=== PATIENT | female | born 1985 | race Caucasian/White ===

== ENCOUNTER 2016-11-16 10:49 | Emergency (ER) | payer BC, MEDICAID ==
[2016-11-16 11:02] VITALS: BP 116/73; PULSE 93; RESP 18; TEMP 97.9; O2SAT 97
--- NOTE | 2016-11-16 12:51 | C.PDOC ---
Time Seen by Provider: 11/16/16 12:01 Chief Complaint (Nursing): Cough, Cold, Congestion Past Medical History Vital Signs: Last Vital Signs Temp 97.9 F 11/16/16 11:01 Pulse 93 H 11/16/16 11:01 Resp 18 11/16/16 11:01 BP 116/73 11/16/16 11:01 Pulse Ox 97 11/16/16 11:01 - Medical History PMH: Hyperthyroidism - Social History Hx Alcohol Use: Yes Hx Substance Use: No - Immunization History Hx Tetanus Toxoid Vaccination: No Hx Influenza Vaccination: No Hx Pneumococcal Vaccination: No ED Course And Treatment O2 Sat by Pulse Oximetry: 97 Disposition - Disposition Referrals: Ethel Mcnulty MD [Medical Doctor] - Disposition: HOME/ ROUTINE Additional Instructions: Follow up with the medical doctor within 1-2 days. Return if worsened. Prescriptions: Ibuprofen [Motrin] 600 mg PO TID #21 tab Benzonatate [Tessalon Perles] 200 mg PO TID PRN #21 sgl PRN Reason: Cough predniSONE [Prednisone] 20 mg PO BID #10 tab Instructions: Upper Respiratory Infection (ED)
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
== END 2016-11-16 12:55 | disposition home or self-care (01) ==
LOC: C.ER 10:49
DX: J06.9 Acute upper respiratory infection, unspecified (principal)

== ENCOUNTER 2018-01-06 08:35 | Emergency (ER) | payer BC, MEDICAID ==
[2018-01-06 08:51] VITALS: BP 120/70; TEMP 99.1; O2SAT 100
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
[2018-01-06 10:02] VITALS: PULSE 101; RESP 17
== END 2018-01-06 09:36 | disposition home or self-care (01) ==
LOC: C.ER 08:35
DX: O9A.212 Injury, poisoning and certain other consequences of external causes complicating pregnancy, second trimester (principal); S00.83XA Contusion of other part of head, initial encounter; Z3A.14 14 weeks gestation of pregnancy

== ENCOUNTER 2018-01-06 18:08 | Emergency (ER) | payer BC ==
[2018-01-06 18:31] VITALS: BP 114/76; PULSE 109; RESP 20; TEMP 97.5; O2SAT 98
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
--- NOTE | 2018-01-07 10:26 | RAD ---
PROCEDURE: Radiographs of the Mandible HISTORY: Injury COMPARISON: None available. TECHNIQUE: AP lateral and oblique radiographs of the mandible were obtained. FINDINGS: Mandible intact, without acute frature or focal lesion. No temporomandibular joint dislocation. To the extent visualized on this study, the remainder of the facial bones are grossly intact. IMPRESSION: No acute fracture or dislocation.
== END 2018-01-06 20:16 | disposition home or self-care (01) ==
LOC: C.ER 18:08
DX: O9A.212 Injury, poisoning and certain other consequences of external causes complicating pregnancy, second trimester (principal); S00.83XA Contusion of other part of head, initial encounter; Z3A.14 14 weeks gestation of pregnancy; W50.0XXA Accidental hit or strike by another person, initial encounter

== ENCOUNTER 2018-04-04 19:31 | Emergency (ER) | payer BC ==
--- NOTE | 2018-04-04 22:56 | OBHP ---
Datetime: 04/04/2018 22:30 IP Adm Impression: , intrauterine IP Admit Plan: Discharge home Admit Comment, IP Provider: Patient seen and evaluated at approximately 2020 hours 32 y.o. , LMP 09/30/16, ABIOLA 07/07/18, EGA 26w 4d, twin gestation c/o sharp, mid-epigastric p ain, "like gas", onset 1800 hours, while laying in bed, lasting approximately 15 minutes; resolved sp ontaneously. Denies nausea, vomiting. (+) FM of both fetuses, A>B ... "all the time". Denies LOF, V B. Last had sexual intercourse 1 week ago. care: Dr. Rivera/Jc. Diagnosed placenta praevi a 1 week ago; hyperthyroid. P Ob: 2008, , female, 9lb 14oz, [facility]; no complications. 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 Methimazole 20 mg - both taken once daily Soc Hx: H/O tobacco use: 1/2 to 1 ppd, since age 19. Stopped at beginning of . In past 2 weeks, due to tensioin btwn her and FOB, now 1-3 cig/d. Denies EtOH or illicit drug use. With FOB (25 y.o.) x 2 yrs; (+) cohabitation. 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 Father alive 52 y.o., both, no med issues. MGF - throat CA. PGM - br [place]. (+) fam h/o DM P.E.: as above. WD in NAD. Crying intermittently throughout interview, whenever discussing FOB and their relationship. Awake, alert, oriented to time, person and place. Pleasant and cooperative Assessment: 30 y.o. P1021, 26w 4d, twin gestaton, reported complete placoenta praevia. Patient mov ed to tears when visualized cardiac activity and FM x 2. Patient encouraged to seek psychological sup port for herself and FOB. Patient has appointment with Dr. Rivera, 04/10/18. Advised to stop cigarette s moking; to investigate alternative methods to cope with stress. Patient is clincally stable. Plan: 1) Discharge home 2) Reviewed S/S labor 3) Continue medications 4) Keep scheduled appointments - as per, and D/W, Dr. Rivera Pelvic Type - PN: Not Done Extremities - PN: Normal Abdomen - PN: Normal Back - PN: Normal Breast - PN: Not Done Lungs - PN: Normal Heart - PN: Normal Thyroid - PN: Not Done Neurologic - PN: Normal HEENT - PN: Normal General - PN: Normal Presentation-Admit: Transverse FHR - Baseline A Provider: [id number] Contraction Comments Provider: none Comments, ACOG Physical Exam: Abdomen: Gravid. soft. Healed abdomnoplasty scar Bedside sono: twin gestaiton visualized. Transverse back up/ Breech. (+) FM x 2; (+) cardiac act ivity x 2; (+) FBM x 2; grossly normal AF; anterior placenta All other systems reviewed and are negative Gestation - Est Wks by US: 26w 4d EGA AdmitDate IP: 26.4 Vital Signs Provider: Reviewed; Within Normal Limits IP Chief Complaint: Other Dilatation, Provider: deferred Genitourinary Exam: Not Done DTRs - PN: Not Done
[2018-04-05 01:03] VITALS: BP 113/62; PULSE 105; TEMP 98
== END 2018-04-04 21:01 | disposition home or self-care (01) ==
LOC: C.EROB 19:31
DX: O44.02 Complete placenta previa NOS or without hemorrhage, second trimester (principal); O99.332 Smoking (tobacco) complicating pregnancy, second trimester; Z3A.26 26 weeks gestation of pregnancy; F17.210 Nicotine dependence, cigarettes, uncomplicated